=== PATIENT | female | born 1980 | race Two or more races ===

== ENCOUNTER 2017-08-25 20:06 | Emergency (ER) | payer BC ==
[~2017-08-25] VITALS: Ht 157.5 cm; Wt 106.6 kg
[2017-08-25] MEDS ORDERED: DiphenhydrAMINE 50mg/ml Inj IVP ONE (21:15)
[2017-08-25] MEDS ORDERED: BENADRYL25 MG ORAL (22:00)
[2017-08-25] MEDS ORDERED: PREDNISONE20 MG ORAL (22:00)
[2017-08-25] MEDS ORDERED: EPINEPHRIN0.3 MG/0.3 IM (22:01)
[2017-08-25 22:05] VITALS: BP 137/87
--- NOTE | 2017-08-25 22:45 | Emergency Room Report ---
History of Present Illness General Chief Complaint: Allergic Reaction Source: Medical Record Present Illness HPI Patient 37-year-old female who presented after increased dysphagia after accidentally ingesting a smoothie which contain bananas. 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 The patient was not noted to have any stridor or tongue swelling. Patient had been given subcutaneous epi as well as Benadryl and Solu-Medrol. She did not have any dizziness or lightheadedness and had not been hypotensive. Patient works at an urgent care. Patient was brought in by EMS. Allergies: Coded Allergies: BANANA (Verified Allergy, Unknown, 08/25/17) Patient History Past Medical History: see triage record Last Menstrual Period: 08/05/17 Now: No Reviewed Nursing Documentation: PMH: Agreed; PSxH: Agreed Review of Systems All Other Systems: negative except mentioned in HPI Physical Exam Vital Signs Date Time Temp Pulse Resp B/P (MAP) Pulse Ox O2 Delivery O2 Flow Rate FiO2 08/25/17 19:57 99.1 96 18 155/98 96 Room Air 99.1 General Appearance: well appearing, no apparent distress, alert, GCS 15 Head: normocephalic, atraumatic ENT: hearing grossly normal, normal voice, uvula midline Neck: full range of motion, supple Respiratory: no respiratory distress, speaking full sentences Cardiovascular #1: normal inspection, normal peripheral pulses, regular rate, rhythm Musculoskeletal: no calf tenderness Neurologic: normal gait Psychiatric: mood/affect normal Skin: no rash Medical Decision Making Diagnostic Impression: Primary Impression: Allergic reaction ER Course Patient presented for allergic reaction. Differential diagnosis included was not limited to anaphylaxis, urticaria, angioedema, anxiety among others. Patient has a benign exam and does not appear to require any further imaging or laboratory testing at this time. Patient was given patient was given IV fluids . IV Benadryl as well as IV Pepcid. She was noted to have improvement in her symptoms. The patient stated she felt better and wanted to go home. The patient was given no for work she was given prescription for steroids and EpiPen as well as Benadryl. Patient was advised to return if she began having increased difficulty breathing dizziness or other concerns Last Vital Signs Date Time Temp Pulse Resp B/P (MAP) Pulse Ox O2 Delivery O2 Flow Rate FiO2 08/25/17 22:05 12 137/87 98 Room Air 08/25/17 22:05 76 08/25/17 19:57 99.1 99.1 Status: improved Disposition: HOME, SELF-CARE Condition: Stable Scripts Epinephrine (Epinephrine) 0.3 Mg/0.3 Ml Auto.injct 0.3 MG IM NEEDED, #1 EA Prov: Mickey Heard 08/25/17 Diphenhydramine Hcl* (BENADRYL*) 25 Mg Capsule 50 MG ORAL Q6H PRN for Itching, #30 CAP Prov: Mickey Heard 08/25/17 Prednisone* (PREDNISONE*) 20 Mg Tablet 60 MG ORAL DAILY for 5 Days, #15 TAB Prov: Mickey Heard 08/25/17 Departure Forms: Return to Work Return to Work Date: Aug 27, 2017 Patient Instructions: Food Allergy, [id number] Mickey Heard Aug 25, 2017 22:45
== END 2017-08-25 22:05 | disposition home or self-care (01) ==
LOC: EDBD 20:06 → EMR 20:58
DX: R13.10 Dysphagia, unspecified (principal); T78.49XA Other allergy, initial encounter; X58.XXXA Exposure to other specified factors, initial encounter
CPT/HCPCS: 96374; 96375; 99284; J1200; S0028